=== PATIENT | male | born 1970 | race Caucasian/White ===

== ENCOUNTER 2017-01-05 10:42 | Day surgery (SDC) | payer OTHER ==
[~2017-01-05] VITALS: Ht 172.7 cm; Wt 78.0 kg
[~2017-01-05 10:42] MED LIST: 0.9% Sodium Chloride 1,000 ML IV SCH; OMEP20TA86 PO; SERT100T PO; Sodium Chloride LOK Flush 10 mL Syringe IV PRN; fentaNYL-PF 50 mCg/mL 2 mL Inj IVPUSH PRN
[2017-01-05] MEDS ORDERED: Propofol 10,000 mCg/mL 20 mL Inj ONE (10:43)
[2017-01-05] MEDS ORDERED: fentaNYL-PF 50 mCg/mL 2 mL Inj ONE (10:43)
[2017-01-05 11:00] VITALS: BP 110/84; PULSE 90; RESP 16; O2SAT 96
[2017-01-05] MEDS ORDERED: ONDA4TAB6 PO (11:01)
[2017-01-05] MEDS ORDERED: CETI10CA PO (11:01)
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
[2017-01-05 12:38] VITALS: BP 94/59; PULSE 72; RESP 15; O2SAT 95
--- NOTE | 2017-01-05 12:50 | PCM.ANEP1 ---
Post Anesthesia PACU Phase 1 Assessment Vital Signs Vital Signs Date Time Temp Pulse Resp B/P Pulse Ox O2 Delivery O2 Flow Rate FiO2 01/05/17 12:38 72 15 94/59 95 Room Air 01/05/17 11:00 90 16 110/84 96 Room Air Anesthetic Administered: GA Level of Alertness: Awake, talking HUNT's with Equal Strength: Yes Pain: No Nausea or Vomiting: No CV Function & Hydration Stable: Yes Airway Device: Lungs: Clear to Auscultation PACU Phase 2 Assessment Complications: No Follow up Care: No Patient Instructions Provided: N/A Nate Alves MD Jan 05, 2017 12:50
[2017-01-05 13:08] VITALS: BP 102/74; PULSE 75; RESP 12; O2SAT 98
[2017-01-05 13:19] VITALS: BP 103/71; PULSE 83; RESP 12; O2SAT 99
--- NOTE | 2017-01-05 18:56 | ENDO ---
[address] [address] ENDOSCOPY PROCEDURE PATIENT: ALBERTO COUGHLIN : 1970 MR#: [id number] ADMIT: 01/05/2017 JOB ID: [id number] DATE OF SERVICE: 01/05/2017 PROCEDURE: Esophagogastroduodenoscopy. INDICATION: Gastroesophageal reflux disease. The patient's ASA classification, Mallampati score and medications as per Dr. Nate Love's anesthesia report. INSTRUMENT USED: [id number]-180J PROCEDURE DETAILS: After informed consent was obtained, the patient was brought to the GI suite, where he was placed on oxygen via nasal cannula and monitored with continuous pulse oximeter, telemetry, and blood pressure monitoring. A time-out was performed. Then, he was placed in a left lateral decubitus position and medications were administered for sedation. A bite block was placed. The standard EGD scope was inserted through the bite block and advanced under direct visualization to the second portion of duodenum without difficulty. FINDINGS: 1. Normal-appearing duodenal bulb, first and second portion. Multiple random biopsies were obtained. 2. Normal-appearing pylorus, antrum and gastric body. 3. Retroflexed views in the gastric body revealed a normal-appearing cardia and fundus. 4. Multiple random biopsies were obtained throughout the antrum and body of the stomach. 5. The GE junction was at approximately 40 cm. In the distal esophagus arising from the GE junction to approximately 1-2 cm proximally, the mucosa was slightly erythematous and edematous suggestive of esophagitis. Multiple biopsies were obtained. The remainder of the esophagus exam was otherwise unremarkable. IMPRESSION: Distal esophagitis, otherwise normal exam to second portion of duodenum. RECOMMENDATIONS: 1. Await biopsy results. 2. PPI daily. 3. Proceed to colonoscopy. PROCEDURE PERFORMED: Colonoscopy. INDICATION: Diarrhea. The patient's ASA classification, Mallampati score and medications as above. INSTRUMENT USED: [id number]-180AL PREPARATION QUALITY: Fair. PROCEDURE DETAILS: After completion of the EGD exam, the patient was turned and a digital rectal exam was performed, which was unremarkable. The colonoscope was then inserted into the rectum and advanced under direct visualization to the terminal ileum which was identified by the presence of the ileocecal valve and villous appearing mucosa of the terminal ileum. Once the terminal ileum was reached, the colonoscope was withdrawn back in the rectum, and mucosa and lumen were examined. In the rectum, retroflexion was performed. Following retroflexion, remaining air in the rectum was suctioned, and procedure was completed. FINDINGS: 1. Normal-appearing terminal ileum. Multiple random biopsies obtained. 2. Normal-appearing colon mucosa from rectum to cecum. Multiple random biopsies were obtained. IMPRESSION: Normal colonoscopy. RECOMMENDATIONS: 1. Await biopsy results. 2. Follow up in GI clinic. COMPLICATIONS: None. ESTIMATED BLOOD LOSS: Less than 5 mL.
--- NOTE | 2017-01-08 18:13 | PATH ---
SURGICAL PATHOLOGY Attending Physician:Niesah Peace CASE STATUS: Signed Out PATIENT NAME: ALBERTO COUGHLIN PID: [id number] : 1970 DATE COLLECTED:01/05/2017 21:16 SPECIMEN: 1: Duodenum, Biopsy 2: Gastric, Biopsy 3: Esophagus, Biopsy 4: Ileum, Biopsy 5: Colon, Biopsy CLINICAL HISTORY: 1). DUODENAL BIOPSY 2). RANDOM GASTRIC BIOPSY, RULE OUT H.PYLORI 3). DISTAL ESOPHAGUS BIOPSY 4). TERMINAL ILEUM BIOPSY 5). RANDOM COLON BIOPSY FINAL DIAGNOSIS: 1.DUODENAL BIOPSY: SMALL BOWEL MUCOSA WITH NO DIAGNOSTIC ABNORMALITY. Negative for active inflammation, features of sprue, dysplasia, and malignancy. 2.RANDOM STOMACH, BIOPSY: GASTRIC BODY MUCOSA WITH NO DIAGNOSTIC ABNORMALITY. Negative for Helicobacter organisms. Negative for intestinal metaplasia. Negative for dysplasia and malignancy. 3.DISTAL ESOPHAGUS, BIOPSY: SQUAMOCOLUMNAR JUNCTIONAL MUCOSA WITH NO DIAGNOSTIC ABNORMALITY. Negative for intestinal metaplasia. Negative for dysplasia and malignancy. 4.TERMINAL ILEUM, BIOPSY: SMALL BOWEL MUCOSA WITH NO DIAGNOSTIC ABNORMALITY. Negative for active inflammation, dysplasia, and malignancy. 5.RANDOM COLON, BIOPSIES: COLONIC MUCOSA WITH NO DIAGNOSTIC ABNORMALITY. Negative for active, chronic and microscopic colitis. Negative for dysplasia and malignancy. ICD10 K21.0 GROSS DESCRIPTION: The specimen is received in five formalin filled containers labeled with the patient's name. 1). The specimen is labeled "duod" and consists of a 0.2 x 0.2 x 0.2 CM portion of tissue which is entirely submitted in cassette 1A. 2). The specimen is labeled "gastric" and consists of 4 portions of tissue which aggregate to 0.4 x 0.3 x 0.2 CM. The specimen is entirely submitted in cassette 2A. 3). The specimen is labeled " DE " and consists of a 0.2 x 0.2 x 0.2 CM portion of tissue which is entirely submitted in cassette 3A. 4). The specimen is labeled " TI " and consists of 3 portions of tissue which aggregate to 0.2 x 0.2 x 0.2 CM. The specimen is entirely submitted in cassette 4A. 5). The specimen is labeled "random" and consists of multiple portions of tissue which aggregate to 0.4 x 0.4 x 0.3 CM. The specimen is entirely submitted in cassette 5A. 8/4/2017AZ MICRO DESCRIPTION: See diagnosis. ICD-9 CODES: CPT CODES: 1: 94804 2: 06274 3: 42653 4: 27911 5: 94856 Electronically Signed Out Yash Evans MD, Ph.D. [facility]ology [facility] [address], [place] [address] Technical component performed at [facility], [address], [place], [address]
== END 2017-01-05 23:59 | disposition home or self-care (01) ==
LOC: END 10:42
PROVIDERS: ATTEND Internal Medicine Gastroenterology
DX: K20.9 Esophagitis, unspecified (principal); K21.9 Gastro-esophageal reflux disease without esophagitis; K92.1 Melena; R19.7 Diarrhea, unspecified; R10.9 Unspecified abdominal pain; G89.29 Other chronic pain; M54.5 Low back pain; F41.8 Other specified anxiety disorders; M19.90 Unspecified osteoarthritis, unspecified site; Z87.442 Personal history of urinary calculi